=== PATIENT | female | born 2000 | race African-American/Black ===

== ENCOUNTER 2021-07-17 14:56 | Inpatient (IN) | payer OTHER, SELFPAY ==
[2021-07-17 16:37] LABS: BHCG - Serum Negative (NEGATIVE); Pregs Control Background? CLEAR/WHITE (CLR/WHITE); Pregs Control Bar Appear? YES (CONTROL BAR)
[2021-07-17 16:38] LABS: #Eosinphils 0.2 10x3/uL (0.0-0.5); #Monocytes 0.4 10x3/uL (0.0-1.1); #Neutrophils 2.8 10x3/uL (1.5-8.4); %Basophils 0.4 % (0.0-2.0); %Lymphocytes 36.6 % (18.0-47.0); %Monocytes 8.2 % (0.0-10.0); %Neutrophils 51.6 % (40.0-75.0); Hemoglobin 4.9 g/dL (12.0-15.5); Mean Corpuscular HGB CONC 26.1 g/dL (32.0-36.0); Mean Corpuscular Hemoglobin 14.4 pg (27.0-33.0); Mean Corpuscular Volume 55.3 fl (81.6-98.3); Mean Platelet Volume 8.9 fl (7.4-10.4); Platelet Count 275 10x3/uL (150-450); RBC Distribution Width 21.7 % (11.5-14.5); White Blood Cell (WBC) Count 5.4 10x3/uL (3.5-10.5)
[2021-07-17 16:42] LABS: ALT (SGPT) 10 U/L (8-55); AST (SGOT) 17 U/L (5-34); Albumin 3.7 g/dL (3.5-5.0); Alkaline Phosphatase 38 U/L (40-110); Anion Gap 10 mmol/L (10-20); BUN (Urea Nitrogen) 8 mg/dL (7.0-18.7); Bilirubin, Total 0.3 mg/dL (0.2-1.2); Calc. Creatinine Clearance 0 mL/min (70-130); Calcium 8.7 mg/dL (7.8-10.44); Carbon Dioxide 24 mmol/L (22-29); Chloride 107 mmol/L (98-107); Globulin 3.4 g/dL (2.4-3.5); Glucose 87 mg/dL (70-105); Potassium 3.6 mmol/L (3.5-5.1); Protein, Total 7.1 g/dL (6.0-8.3); Sodium 137 mmol/L (136-145)
[2021-07-17 17:30] LABS: Anisocytosis MARKED = >30 cells (100X) (0-5/hpf); Hypochromia MARKED = >30 cells (100X) (0-5/hpf); Microcytosis MARKED = >30 cells (100X) (0-5/hpf); Poikilocytosis SLIGHT = 6-15 cells (100X) (0-5/hpf)
[2021-07-17 17:34] LABS: Target Cells SLIGHT = 2-5 cells (100X) (0-1/hpf)
[2021-07-17 17:36] LABS: Schistocytes SLIGHT = 2-5 cells (100X) (0-1/hpf)
[2021-07-17 17:49] LABS: Large Platelets SLIGHT; Tear Drops SLIGHT = 2-5 cells (100X) (0-1/hpf)
[2021-07-17 17:53] LABS: Reflex for Review?? YES
[2021-07-17] MEDS ORDERED: Ondansetron ODT 4 MG TAB PO PRN (19:39)
[2021-07-17] MEDS ORDERED: Acetaminophen 325 MG TAB PO PRN (19:39)
[2021-07-17] MEDS ORDERED: Ondansetron PF 4 MG/2 ML Vial IVP PRN (19:39)
[2021-07-17] MEDS ORDERED: Acetaminophen 650 MG Suppository PR PRN (19:39)
[2021-07-17 19:40] LABS: SARS-CoV-2 NAA Rapid Test Not Detected (NotDetected)
[2021-07-17] MEDS ORDERED: Sodium Chloride 0.9% 1,000 ML IV SCH (19:45)
[2021-07-17 20:08] VITALS: BMI 30.5
[2021-07-17 23:27] LABS: Hemoglobin 6.5 g/dL (12.0-15.5)
[2021-07-17 23:34] LABS: PTT 22.8 sec (22.0-33.0); Prothrombin Time 10.6 sec (9.5-12.1)
[2021-07-18 04:42] LABS: Anion Gap 10 mmol/L (10-20); BUN (Urea Nitrogen) 7 mg/dL (7.0-18.7); Calc. Creatinine Clearance 199 mL/min (70-130); Calcium 8.8 mg/dL (7.8-10.44); Carbon Dioxide 23 mmol/L (22-29); Chloride 110 mmol/L (98-107); Glucose 84 mg/dL (70-105); Iron 13 ug/dL (50-170); Iron Binding Capacity, Total 441 mcg/dL (265-497); Potassium 3.4 mmol/L (3.5-5.1); Sodium 140 mmol/L (136-145)
[2021-07-18 04:45] LABS: Iron 15 ug/dL (50-170); Iron Binding Capacity, Total 448 mcg/dL (265-497)
[2021-07-18 04:57] LABS: Ferritin Less than 2.00 ng/mL (10-291)
[2021-07-18 06:40] LABS: Hemoglobin 6.7 g/dL (12.0-15.5)
[2021-07-18] MEDS ORDERED: IRON SUCROSE COMPLEX 100 MG/5 ML SLOW IVP SCH (07:45)
[2021-07-18] MEDS ORDERED: Potassium Chloride 40 MEQ in Premix Bag 1 BAG IVPB SCH (07:45)
[2021-07-18] MEDS ORDERED: Iron, Sodium Ferric Gluconate 125 MG in Sodium Chloride 0.9% 100 ML IVPB SCH (09:00)
[2021-07-18] MEDS ORDERED: Tranexamic Acid 650 MG TAB PO SCH (09:45)
[2021-07-18] MEDS: Potassium Chloride 20 MEQ in Premix Bag 1 BAG IVPB SCH ×2 (10:17→12:31)
[2021-07-18] MEDS ORDERED: Potassium Chloride 20 MEQ TAB PO SCH (12:30)
[2021-07-18 13:40] LABS: Vitamin B12 601 pg/mL (211-911)
[2021-07-18] MEDS: Tranexamic Acid 650 MG TAB PO SCH ×2 (15:35→23:12)
[2021-07-19 04:18] LABS: #Eosinphils 0.2 10x3/uL (0.0-0.5); #Monocytes 0.6 10x3/uL (0.0-1.1); #Neutrophils 3.6 10x3/uL (1.5-8.4); %Basophils 0.6 % (0.0-2.0); %Eosinophils 2.6 % (0.0-6.0); %Lymphocytes 37.1 % (18.0-47.0); %Monocytes 8.2 % (0.0-10.0); %Neutrophils 51.2 % (40.0-75.0); Hemoglobin 7.8 g/dL (12.0-15.5); Mean Corpuscular HGB CONC 29.3 g/dL (32.0-36.0); Mean Corpuscular Hemoglobin 18.2 pg (27.0-33.0); Platelet Count 272 10x3/uL (150-450); Red Blood Cell (RBC) Count 4.29 10x6/uL (3.90-5.03)
[2021-07-19 04:26] LABS: Anion Gap 13 mmol/L (10-20); BUN (Urea Nitrogen) 5 mg/dL (7.0-18.7); Calc. Creatinine Clearance 193 mL/min (70-130); Calcium 9.2 mg/dL (7.8-10.44); Carbon Dioxide 20 mmol/L (22-29); Chloride 109 mmol/L (98-107); Glucose 78 mg/dL (70-105); Potassium 3.8 mmol/L (3.5-5.1); Sodium 138 mmol/L (136-145)
[2021-07-19 06:03] LABS: Anisocytosis MODERATE=16-30 cells (100X) (0-5/hpf); Hypochromia MODERATE=16-30 cells (100X) (0-5/hpf); Microcytosis MODERATE=15-30 cells (100X) (0-5/hpf); Polychromasia SLIGHT = 2-3 cells (100X) (0-2/hpf)
[2021-07-19 06:04] LABS: Platelet Morphology Comment Appears Adequate; Tear Drops SLIGHT = 2-5 cells (100X) (0-1/hpf)
[2021-07-19 06:55] VITALS: BP 117/63; TEMP 97.7
[2021-07-19] MEDS ORDERED: Ferrous Gluconate 324 MG TAB PO SCH (08:00)
[2021-07-19] MEDS: Tranexamic Acid 650 MG TAB PO SCH (09:12)
== END 2021-07-19 11:15 | disposition home or self-care (01) | DRG 760 ==
LOC: CSHERS 14:56 → UNDOADMIN 19:18 → CSHIMCU 19:18 → CSHTELE 07-18 07:17 → CSHIMCU 07-18 08:14 → CSHTELE 07-18 08:14 → CSHIMCU 07-18 08:23 → CSHTELE 07-18 09:25 → CSHIMCU 07-18 09:25 → UNDODISIN 07-19 11:15
PROVIDERS: ADMIT Student in an Organized Health Care Education/Training Program; ATTEND Internal Medicine
PROC: 30233N1 Transfusion of Nonautologous Red Blood Cells into Peripheral Vein, Percutaneous Approach (ICD-10-PCS; principal; 2021-07-18)
DX: N92.0 Excessive and frequent menstruation with regular cycle (principal); D62 Acute posthemorrhagic anemia; E87.6 Hypokalemia; Z20.822 Contact with and (suspected) exposure to COVID-19; D50.9 Iron deficiency anemia, unspecified; Z98.890 Other specified postprocedural states
CPT/HCPCS: 36415; 36430; 76856; 80048; 80053; 82607; 82728; 82746; 83540; 83550; 84703; 85014; 85018; 85025; 85060; 85610; 85730; 86850; 86900; 86901; 93005; 94760; J2916; J3480; J3490; J7050; P9016; U0002